=== PATIENT | female | born 1960 | race Caucasian/White ===

== ENCOUNTER 2018-01-25 09:01 | Inpatient (IN) | payer OTHER ==
--- NOTE | 2018-01-25 09:31 | RAD ---
FRONTAL VIEW CHEST: Comparison: None. Clinical history: Midsternal chest pain. Pain radiates to the left arm. FINDINGS: There is elevation of the right hemidiaphragm with blunting of the right lateral costophrenic sulcus. No lobar consolidation. Cardiac silhouette is within normal limits in size. There is vascular calcif ication. Osseous degenerative change is seen. IMPRESSION: Elevation of right hemidiaphragm with blunting of the right lateral costophrenic sulcus. There is adj acent suture material indicating prior surgery of the inferior right hemithorax. Correlate with surgi brent history. POS: [facility]
[2018-01-25 09:42] LABS: #Basophils 0.2 thou/uL (0.0-0.2); #Eosinphils 0.3 thou/uL (0.0-0.7); #Lymphocytes 3.3 thou/uL (1.20-3.40); #Monocytes 0.5 thou/uL (0.11-0.59); #Neutrophils 5.5 thou/uL (1.40-6.50); %Basophils 1.8 % (0.0-1.0); %Eosinophils 3.2 % (0.0-10.0); %Lymphocytes 33.4 % (21.0-51.0); %Monocytes 5.5 % (0.0-10.0); %Neutrophils 56.1 % (42.0-75.0); Hemoglobin 15.3 g/dL (12.0-16.0); Mean Corpuscular HGB CONC 34.2 g/dL (32.0-36.0); Mean Corpuscular Hemoglobin 30.4 pg (27.0-31.0); Mean Corpuscular Volume 88.9 fl (81.0-99.0); Mean Platelet Volume 7.6 fL (7.4-10.4); Platelet Count 328 thou/uL (130-400); RBC Distribution Width 11.7 % (11.5-14.5); Red Blood Cell (RBC) Count 5.03 mill/uL (4.20-5.40); White Blood Cell (WBC) Count 9.8 thou/uL (4.8-10.8)
[2018-01-25 10:07] LABS: ALT (SGPT) 11 U/L (8-55); AST (SGOT) 25 U/L (5-34); Albumin 4.3 g/dL (3.5-5.0); Alkaline Phosphatase 113 U/L (40-150); Anion Gap 9 mmol/L (10-20); BUN (Urea Nitrogen) 10 mg/dL (9.8-20.1); Bilirubin, Total 0.2 mg/dL (0.2-1.2); CK (CPK) 176 U/L (29-168); Calc. Creatinine Clearance 0 mL/min (70-130); Calcium 9.6 mg/dL (7.8-10.44); Carbon Dioxide 29 mmol/L (22-29); Chloride 106 mmol/L (98-107); Estimated GFR-MDRD 73; Globulin 2.8 g/dL (2.4-3.5); Glucose 99 mg/dL (70-105); Protein, Total 7.1 g/dL (6.0-8.3); Sodium 140 mmol/L (136-145)
[2018-01-25 10:17] LABS: CKMB 15.6 ng/mL (0-6.6); Troponin I 1.661 ng/mL (< 0.028)
[2018-01-25] MEDS ORDERED: Enoxaparin Sodium 80 MG/0.8 ML SYRINGE ONE (10:22)
[2018-01-25] MEDS ORDERED: Nitroglycerin 2% Ointment 1 INCH/1 GM Packet ONE (11:05)
[2018-01-25] MEDS ORDERED: Sodium Chloride 0.65% Nasal 44 ML BOT EA NARE PRN (12:04)
[2018-01-25] MEDS ORDERED: Zolpidem Tartrate 5 MG TAB PO PRN (12:04)
[2018-01-25] MEDS ORDERED: Eucerin (Mineral Oil/Petrolatum,White) 30 gm Jar TOP PRN (12:04)
[2018-01-25] MEDS ORDERED: Ondansetron HCl/PF 4 MG/2 ML Vial IVP PRN (12:04)
[2018-01-25] MEDS ORDERED: hydrALAZINE 20 MG/ML VIAL SLOW IVP PRN (12:04)
[2018-01-25] MEDS ORDERED: Diabetic Tussin 200 MG/10 ML UDCUP PO PRN (12:04)
[2018-01-25] MEDS ORDERED: Loperamide HCl 2 MG CAP PO PRN (12:04)
[2018-01-25] MEDS ORDERED: Acetaminophen 325 MG TAB PO PRN (12:04)
[2018-01-25] MEDS ORDERED: Ondansetron ODT 4 MG TAB PO PRN (12:04)
[2018-01-25] MEDS ORDERED: Nitroglycerin 0.4 MG TAB (25 Tab Bottle) PO PRN (12:04)
[2018-01-25] MEDS ORDERED: Artificial Tears 18 DROP/0.9 ML EA EYE PRN (12:04)
[2018-01-25] MEDS ORDERED: Loratadine 10 MG TAB PO PRN (12:04)
[2018-01-25] MEDS ORDERED: Mag-Al 1200 mg/1200 mg/30 ML UDCUP PO PRN (12:04)
[2018-01-25] MEDS ORDERED: Chloraseptic Spray 180 ml Bottle PO PRN (12:04)
[2018-01-25] MEDS ORDERED: Milk Of Magnesia 30 ML UDCUP PO PRN (12:04)
[2018-01-25] MEDS ORDERED: HYDROcodone/Acetaminophen 5/325 mg Tablet PO PRN (12:04)
[2018-01-25 12:52] LABS: Troponin I 2.353 ng/mL (< 0.028)
--- NOTE | 2018-01-25 14:09 | HP ---
PRIMARY CARE PHYSICIAN: [facility] call admission. REASON FOR ADMISSION: Non-ST elevation myocardial infarction. HISTORY OF PRESENT ILLNESS: A 58-year-old female who has underlying history of dyslipidemia, but not on any medication, as well as tobacco abuse disorder, who presented to the emergency room with compl aint of chest pain. Patient reports that she is having intermittent chest discomfort since 01/13/2018. She describes soheila st discomfort, retrosternal tightness, squeezing in nature, increased by exertion, associated with na usea and sometimes vomiting associated with shortness of breath. After walking, pain gets worse. So metimes last pain for 15 minutes, sometimes a little bit longer. Since 01/13/2018, patient has gradu ally increasing number of pain and gradually increasing duration of pain. Last Monday, she was havi ng severe pain associated with one episode of vomiting and pain radiated to the left upper extremity. Initially, she was thinking gas, but antiacid medication was not relieving any pain. For the last 2 days, she was not able to eat and despite that, she was having intermittent pain which was coming a fter exertion. Patient was noticing that pain whenever she was walking with her dog. This morning, patient felt a little bit better and that is why she went outside with her dog and afte r that pain was started very severe and that is why she was thinking that something wrong and that is why she decided to come to the emergency room for evaluation. Patient reports that she had lipid panel checked by her primary care physician and her bad cholestero l was significantly abnormal and that is why patient started modifying her diet as well as she starte d reducing smoking. Today in the emergency room, patient had electrocardiogram which was unremarkabl e, but troponin was significantly abnormal. Patient never had any cardiac catheterization. Patient reports that she had stress test done in the past for abnormal EKG. In the emergency room, patient was treated with Lovenox 1 mg/kg and aspirin. After that, patient's p ain subsequently subsided and after nitropatch, patient was chest pain free. Her troponin has kept i ncreasing and we are admitting this patient to telemetry floor. She denies any orthopnea, PND or leg swelling. She denies any palpitations, syncope. Patient denies any fever or chills. She denies an y relation of chest pain with full respiration. She denies any constipation, diarrhea, melena, hemat ochezia. She denies any focal motor or sensory symptoms. The patient reports that she does not like to take medication. REVIEW OF SYSTEMS: The following complete review of systems was negative, unless otherwise mentioned in the HPI or below: Constitutional: Weight loss or gain, ability to conduct usual activities. Sk in: Rash, itching. Eyes: Double vision, pain. ENT/Mouth: Nose bleeding, neck stiffness, pain, te nderness. Cardiovascular: Palpitations, dyspnea on exertion, orthopnea. Respiratory: Shortness of breath, wheezing, cough, hemoptysis, fever or night sweats. Gastrointestinal: Poor appetite, abdom inal pain, heartburn, nausea, vomiting, constipation, or diarrhea. Genitourinary: Urgency, frequenc y, dysuria, nocturia. Musculoskeletal: Pain, swelling. Neurologic/Psychiatric: Anxiety, depressio n. Allergy/Immunologic: Skin rash, bleeding tendency. Please see my HPI for pertinent positive and negative. All other review of systems reviewed and nega tive except as mentioned in the HPI. ALLERGIES: No known drug allergy. CURRENT HOME MEDICATIONS: Patient is currently not taking any prescribed or non-prescribed medicatio n. PAST MEDICAL HISTORY: Dyslipidemia but patient is only controlling with diet. PAST PSYCHIATRIC HISTORY: Anxiety disorder. PAST SURGICAL HISTORY: The patient reports that she had a deviated nasal septum surgery x2, back vishnu imelda x1, D&C x2, lung biopsy. SOCIAL HISTORY: The patient currently lives in [place], but because of her 's job, she is co neo during the summertime in [place] [facility] [place] area. She currently lives in a . She smokes a bout half pack per day. She used to be heavy smoker, but she has reduced to smoking since diagnosis of dyslipidemia. She denies any alcohol abuse. She denies any other illicit drug abuse. FAMILY HISTORY: Hypertension runs to her mother. No strong family history of premature coronary art nate disease, stroke or cancer. EMERGENCY ROOM COURSE: The patient is given nitro patch, aspirin, and Lovenox 1 mg per kg. PHYSICAL EXAMINATION: VITAL SIGNS: On arrival, blood pressure 134/81, pulse 87, respiratory rate 19, temperature 98.7, sat uration 98% on room air, weight 68.9 kilograms. GENERAL: Patient is currently alert, awake, no obvious acute distress. HEAD: Normocephalic, atraumatic. EYES: Pupils round, reactive to light. Extraocular muscle intact. ENT: Oropharynx within normal limits. Moist mucous membrane, no oral lesion, no pharyngeal erythema , no exudate. NECK: Supple, no JVD, no thyromegaly, no carotid bruit, no jugular venous distention. LUNGS: Clear to auscultation without any rhonchi or rales. CARDIAC: S1 and S2 regular. No murmur, no gallop, no rub. ABDOMEN: Soft, bowel sounds present, nontender, and nondistended. No organomegaly, no mass, no supr apubic tenderness. No epigastric tenderness, no Vidal sign. BACK: Unremarkable, no CVA tenderness. No point tenderness. EXTREMITIES: Upper extremity passive movements of all joints are normal. Lower extremities: No rosalio ma. Good peripheral pulsation, no calf tenderness. SKIN: No skin rash. HEMATOLOGICAL SYSTEM: No lymphadenopathy. PSYCHIATRIC: Anxious affect. NEUROLOGIC: The patient is alert and oriented x3. Cranial nerves II-XII intact. Motor and sensatio n within normal limits. No focal neurological deficit noted. IMAGING DATA AND SIGNIFICANT LABORATORY DATA: 1. EKG showing normal sinus rhythm without any acute ischemic changes. 2. Chest x-ray based on my review, elevation of right hemidiaphragm. 3. CBC: WBC 9.8, hemoglobin 15.3, platelet 328. 4. BMP: Sodium 140, potassium 4.0, chloride 106, carbon dioxide 29, anion gap 9, BUN 10, creatinine 0.81, glucose 99, calcium 9.6. 5. LFT: AST 25, ALT 11, alkaline phosphatase 113, albumin 4.3. D-dimer less than 0.27, CK 176, CK- MB 15.6, troponin 1.661. ASSESSMENT AND PLAN/IMPRESSION: 1. Non-ST elevation myocardial infarction. This patient has classic history of angina which gets wo rse with exertion and this is going on since 01/13/2018. The patient had worse episode of chest pain on Monday as well as this morning. Currently, patient has significantly abnormal troponin. She mena s underlying risk factors for coronary artery disease including her age, tobacco abuse, as well as dy slipidemia. The patient's clinical presentation is not consistent with any thromboembolic disorder. This is most likely related with her coronary artery disease. Patient is given instruction that she will be treated with aspirin 325 mg p.o. daily. We will also consider adding Plavix 75 mg p.o. anselmo y, Lovenox 1 mg per kg subcu twice daily and metoprolol 25 mg twice daily as well as we will also add statin therapy with Lipitor 40 mg p.o. at bedtime and we will also continue nitropatch q.8 hourly. When I provided detailed management plan to this patient, then patient reported that she is overwhelm ed with information and she does not like to take medication. I provided patient counseling to be co mpliant with medication and controlling risk factors aggressively to prevent any bad future outcome. Cardiology will be consulted. Dr. Nelson will be notified. We will obtain echocardiography to asse ss ejection fraction and other structural abnormality. Smoking cessation counseling given. Healthy lifestyle measures discussed with the patient. We will keep her n.p.o. after midnight. Patient sanam land had a lunch today, so procedure is not possible today. We will check lipid profile for risk stra tification tomorrow and we will do serial cardiac enzymes and we will closely monitor on telemetry fl oor. 2. Tobacco abuse disorder. Smoking cessation counseling given. We will offer nicotine patch if nee ded. 3. Anxiety and depression. We will provide Ativan 1 mg p.o. q.4 hourly p.r.n. for anxiety. 4. Deep venous thrombosis prophylaxis. We will continue Lovenox 1 mg per kg subcu twice daily as a full treatment for non-STEMI. 5. Gastrointestinal prophylaxis, Pepcid 20 mg p.o. b.i.d. 6. Code status: The patient is FULL CODE. Patient's is surrogate decision maker. 7. Dyslipidemia. We will check lipid profile tomorrow morning and we will start Lipitor 40 mg p.o. at bedtime. 8. Mild hypertension. Patient also has elevated blood pressure. The patient will benefit from meto prolol 25 mg twice daily. Disposition plan based on clinical course and Cardiology recommendation. Plan of care extensively di scussed with the patient in detail, but after discussion of all of this information, the patient felt herself overwhelmed with information.
--- NOTE | 2018-01-25 14:49 | CON ---
DATE OF CONSULTATION: 01/25/2018 REASON FOR CONSULTATION: Non-STEMI. HISTORY OF PRESENT ILLNESS: Mrs. Rogel is a pleasant 58-year-old white female, who comes to the [facility] for chest pain. She has noticed chest pain intermittently since 01/13/2018, so for the last 12 days she has noticed that it has been getting worse to the point where this morning she felt the peyton n was really severe and decided to come in for evaluation. She has been noticing that some days she w ould wake up without pain and she would go out and walk the dog and she started getting chest pain, s hort of breath and she would have to stop. She currently is chest pain free. She states that since the nitro was applied, she has not had any more chest pain. She otherwise has no other complaints. She states she had a clean bill of health by her primary care physician just about 6 months ago. 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 PAST MEDICAL HISTORY: Hyperlipidemia. OUTPATIENT MEDICATIONS: None. ALLERGIES: No known drug allergies. SOCIAL HISTORY: Continues to smoke. She states that she smokes anywhere from half pack to a pack an d a half a day. No alcohol or drug use. Lives in her with her . FAMILY HISTORY: Hypertension, otherwise noncontributory. PAST SURGICAL HISTORY: 1. Deviated nasal septum repair. 2. Back surgery. 3. Dilation and curettage x2. 4. Lung biopsy. REVIEW OF SYSTEMS: A 12-point review of systems was done and is all negative unless stated in the hi story of present illness. PHYSICAL EXAMINATION: VITAL SIGNS: Blood pressure 134/81, pulse 87, respiratory rate 19, satting 98% on room air, temperat ure 98.7. GENERAL: Awake, alert, oriented x3, in no distress. HEENT: Normocephalic, atraumatic. NECK: Supple. LUNGS: Clear. CARDIOVASCULAR: S1, S2. No S3, S4, no murmurs. ABDOMEN: Soft, positive bowel sounds. EXTREMITIES: No edema. SKIN: Warm and dry. LABORATORY WORK: Reviewed. Her white count of 9.8, hemoglobin of 15, hematocrit 44, platelet count 328. Coags: D-dimer is undetectable. Chemistries unremarkable except for a CK-MB of 15 and troponi n 1.6 up to 2.3. BNP was 93, albumin 4.3. EKG was reviewed. She has anterior septal Q-waves with [address] elevation on the anterior leads. No reciprocal changes. Chest x-ray: Elevated right hemidiaphragm, otherwise no acute cardiopulmonary issues. ASSESSMENT AND PLAN: 1. Non-ST elevation myocardial infarction. 2. Tobacco abuse. 3. Hyperlipidemia. PLAN: 1. I spoke with her at length about further risk stratification with a left heart catheterization. Risks and benefits were discussed. The risks included, but not limited to stroke, PR, , bleedin g and need for blood transfusion, limb loss, organ loss, vascular injury, requiring emergent vessel r epair, requiring emergent bypass surgery. The patient verbalized understanding of this and agrees to proceed. We also spoke about stenting and sedation, she agrees to proceed. I would favor bare meta l stents in her case that she does not like taking medications. 2. She just had lunch at this time and she is pain free and her troponin is just mildly elevated. M y suspicion is high for having multivessel disease and she may require bypass surgery. At this time, I will plan on doing this tomorrow morning to be safer. We will have further recommendations per re gabriella of coronary angiogram.
[2018-01-25 15:59] LABS: Troponin I 2.657 ng/mL (< 0.028)
[2018-01-25] MEDS: Nitroglycerin 2% Ointment 1 INCH/1 GM Packet TOP SCH ×2 (17:00→21:28)
[2018-01-25] MEDS ORDERED: Morphine 4 MG/ML VIAL SLOW IVP SCH (18:15)
[2018-01-25 18:40] LABS: Critical Call Chem Troponin I RESULT DECREASING; Troponin I 2.523 ng/mL (< 0.028)
[2018-01-25] MEDS ORDERED: Atorvastatin Calcium 40 MG TAB PO SCH (21:00)
[2018-01-25] MEDS: Metoprolol Tartrate 25 MG TAB PO SCH (21:28)
[2018-01-25] MEDS: Famotidine 20 MG TAB PO SCH (21:28)
[2018-01-25] MEDS: Enoxaparin Sodium 80 MG/0.8 ML SYRINGE SC SCH (21:28)
[2018-01-26 03:52] LABS: #Basophils 0.1 thou/uL (0.0-0.2); #Eosinphils 0.4 thou/uL (0.0-0.7); #Lymphocytes 4.5 thou/uL (1.20-3.40); #Monocytes 0.7 thou/uL (0.11-0.59); #Neutrophils 4.5 thou/uL (1.40-6.50); %Basophils 0.9 % (0.0-1.0); %Lymphocytes 44.2 % (21.0-51.0); %Monocytes 6.5 % (0.0-10.0); %Neutrophils 44.5 % (42.0-75.0); Hemoglobin 14.2 g/dL (12.0-16.0); Mean Corpuscular HGB CONC 34.2 g/dL (32.0-36.0); Mean Corpuscular Hemoglobin 29.9 pg (27.0-31.0); Mean Corpuscular Volume 87.5 fl (81.0-99.0); Mean Platelet Volume 7.3 fL (7.4-10.4); Platelet Count 284 thou/uL (130-400); RBC Distribution Width 11.6 % (11.5-14.5); Red Blood Cell (RBC) Count 4.74 mill/uL (4.20-5.40); White Blood Cell (WBC) Count 10.1 thou/uL (4.8-10.8)
[2018-01-26 04:14] LABS: Anion Gap 10 mmol/L (10-20); BUN (Urea Nitrogen) 11 mg/dL (9.8-20.1); Calc. Creatinine Clearance 88 mL/min (70-130); Calcium 9.5 mg/dL (7.8-10.44); Carbon Dioxide 24 mmol/L (22-29); Cardiac Risk 6.6 (Less than 4.5); Chloride 108 mmol/L (98-107); Cholesterol 171 mg/dl (< 200 Desired); Estimated GFR-MDRD 80; Glucose 96 mg/dL (70-105); HDL Cholesterol 26 mg/dL (>60 Neg Risk); Potassium 4.2 mmol/L (3.5-5.1); Sodium 138 mmol/L (136-145); Triglycerides 420 mg/dL (Less than 150)
[2018-01-26] MEDS: Nitroglycerin 2% Ointment 1 INCH/1 GM Packet TOP SCH ×3 (05:41→20:59)
[2018-01-26] MEDS ORDERED: Lidocaine 1% (PF) 30 ML VIAL ONE (06:26)
[2018-01-26] MEDS: Metoprolol Tartrate 25 MG TAB PO SCH (06:55)
[2018-01-26] MEDS: Famotidine 20 MG TAB PO SCH ×2 (06:55→20:58)
[2018-01-26] MEDS: Enoxaparin Sodium 80 MG/0.8 ML SYRINGE SC SCH (06:56)
--- NOTE | 2018-01-26 07:34 | PDOC.PN ---
- Subjective Encounter Start Date: 01/26/18 Encounter Start Time: 14:00 Subjective: Patient a bit anxious and SOB after cath and stent. Better with neb. -: Her art line came unhooked and bled on bed some which worsened her -: anxiety. Mild chest discomfort at this time. - Objective Resuscitation Status: Resuscitation Status FULL:Full Resuscitation MAR Reviewed: Yes Vital Signs & Weight: Vital Signs (12 hours) Temp Pulse Resp BP Pulse Ox 01/26/18 04:00 97.9 F 65 18 122/70 95 01/25/18 23:58 98.2 F 65 16 129/74 94 L 01/25/18 20:00 97.8 F 72 20 94 L 01/25/18 19:59 97.8 F 72 20 112/65 94 L Weight Weight 146 lb 2 oz I&O: 01/25/18 01/26/18 01/27/18 06:59 06:59 06:59 Intake Total 320 Balance 320 Result Diagrams: 01/26/18 14:53 01/26/18 03:32 Phys Exam - Physical Examination Constitutional: NAD HEENT: moist MMs Respiratory: no wheezing, no rales, no rhonchi Cardiovascular: RRR, no significant murmur Gastrointestinal: soft, positive bowel sounds Neurological: non-focal, moves all 4 limbs Psychiatric: normal affect, A&O x 3 Dx/Plan (1) NSTEMI (non-ST elevated myocardial infarction) Code(s): I21.4 - NON-ST ELEVATION (NSTEMI) MYOCARDIAL INFARCTION Status: Acute Comment: currently on Plavix, ASA, full dose Lovenox, and Nitropaste to chest wall. Had cath with almost complete LAD blockage, resolved with stent placement. Troponin repeat up a bit, will trend due to pain after cath. EKG unchanged. (2) Hyperlipidemia Code(s): E78.5 - HYPERLIPIDEMIA, UNSPECIFIED Status: Chronic Qualifiers: Hyperlipidemia type: unspecified Qualified Code(s): E78.5 - Hyperlipidemia , unspecified (3) Tobacco abuse disorder Code(s): Z72.0 - TOBACCO USE Status: Chronic (4) Anxiety Code(s): F41.9 - ANXIETY DISORDER, UNSPECIFIED Status: Chronic Comment: Ativan prn (5) COPD (chronic obstructive pulmonary disease) Status: Acute Comment: Patient uses inhaler at home. Will give albuterol neb prn. - Plan cont current plan of care, DVT proph w/lovenox, DVT proph w/SCDs * . - Discharge Day Encounter end time: 14:20
[2018-01-26] MEDS ORDERED: Fentanyl 100 MCG/2 ML VIAL ONE (07:35)
[2018-01-26] MEDS ORDERED: Midazolam HCl 2 mg/2 ml Vial ONE (07:35)
[2018-01-26] MEDS ORDERED: Heparin 10,000 UNITS/1 ML VIAL ONE (08:06)
[2018-01-26] MEDS ORDERED: Nitroglycerin 100MG/250ML BOT 250 ML ONE (08:10)
[2018-01-26] MEDS ORDERED: TICAGRELOR 90 MG TABLET ONE (08:10)
[2018-01-26] MEDS ORDERED: Aggrastat 12.5 MG/250 ML 250 ML ONE (08:21)
[2018-01-26] MEDS ORDERED: Morphine 4 MG/ML VIAL SLOW IVP PRN (08:35)
[2018-01-26] MEDS ORDERED: Aggrastat 12.5 MG/250 ML 250 ML IVPB SCH (08:45)
[2018-01-26] MEDS ORDERED: Aspirin 325 MG TAB PO SCH (09:00)
[2018-01-26] MEDS ORDERED: Clopidogrel Bisulfate 75 MG TAB PO SCH (09:00)
[2018-01-26] MEDS ORDERED: Morphine 4 MG/ML VIAL ONE (09:47)
[2018-01-26] MEDS ORDERED: Ondansetron HCl/PF 4 MG/2 ML Vial ONE (10:04)
[2018-01-26] MEDS: TICAGRELOR 90 MG TABLET PO SCH ×2 (10:57→21:11)
[2018-01-26] MEDS: Carvedilol 3.125 MG TAB PO SCH ×2 (11:03→20:58)
[2018-01-26] MEDS ORDERED: Iopamidol 370 76% 100 ML VIAL ONE (11:45)
[2018-01-26] MEDS ORDERED: Iopamidol 370 76% 50 ML VIAL FS ONE (11:45)
[2018-01-26] MEDS ORDERED: Lorazepam 2 MG/ML VIAL SLOW IVP PRN (14:01)
[2018-01-26] MEDS: Albuterol Sulfate 2.5 mg/3 ml Neb NEB PRN (14:49)
[2018-01-26] MEDS: Lorazepam 1 MG TAB PO PRN (14:50)
--- NOTE | 2018-01-26 14:50 | RAD ---
ONE VIEW CHEST: COMPARISON: 01/25/18. HISTORY: Status post surgery. FINDINGS: Normal cardiac silhouette. Atherosclerosis of the aorta. Pulmonary vessels and hilum are normal. P ersistent blunting of the right costophrenic angle. No consolidation or mass. No pneumothorax or os seous abnormalities. IMPRESSION: No acute cardiopulmonary process. POS: [facility]
[2018-01-26 15:10] LABS: #Eosinphils 0.2 thou/uL (0.0-0.7); #Lymphocytes 3.3 thou/uL (1.20-3.40); #Monocytes 0.6 thou/uL (0.11-0.59); #Neutrophils 5.2 thou/uL (1.40-6.50); %Basophils 0.5 % (0.0-1.0); %Eosinophils 2.5 % (0.0-10.0); %Lymphocytes 35.4 % (21.0-51.0); %Monocytes 6.7 % (0.0-10.0); Hemoglobin 13.3 g/dL (12.0-16.0); Mean Corpuscular HGB CONC 34.7 g/dL (32.0-36.0); Mean Corpuscular Volume 86.5 fl (81.0-99.0); Mean Platelet Volume 7.3 fL (7.4-10.4); Platelet Count 308 thou/uL (130-400); RBC Distribution Width 11.5 % (11.5-14.5); Red Blood Cell (RBC) Count 4.45 mill/uL (4.20-5.40); White Blood Cell (WBC) Count 9.4 thou/uL (4.8-10.8)
[2018-01-26 15:31] LABS: CKMB 9.4 ng/mL (0-6.6); Troponin I 3.663 ng/mL (< 0.028)
[2018-01-26 18:30] LABS: CKMB 7.2 ng/mL (0-6.6); Critical Call CKMBM RESULT DECREASING; Critical Call Chem Troponin I RESULT DECREASING; Troponin I 3.241 ng/mL (< 0.028)
--- NOTE | 2018-01-26 19:25 | CON ---
DATE OF CONSULTATION: 01/26/2018 SERVICE: Pulmonary medicine. REASON FOR CONSULTATION: ICU patient. HISTORY OF PRESENT ILLNESS: The patient is a 58-year-old white female with past medical history significant for onset of chest discomfort on 01/13/2018. It was intermittent initially. It became extremely severe, but would always remit. As such, she just attributed to other things. In the back of her mind, she always suspected it could be something more serious. That being said, there has been a lot of stress in her life recently and she did not have time to seek help. That being said, 3 days ago, she had onset of continuous chest discomfort. She finally decided to come to the emergency department. In that location, her troponin was abnormal. She did not have an ST-elevation NE however. She underwent cardiac catheterization, which demonstrated a LAD lesion. She underwent stenting. The chest discomfort at this point has resolved. She has no fevers, chills, nausea, vomiting, or shortness of breath. She never had any diaphoresis, cough, or congestion. She denies having any dysuria. PAST MEDICAL HISTORY: 1. Hypercholesterolemia. 2. Coronary artery disease, new diagnosis. 3. Pulmonary Langerhans cell histiocytosis PAST SURGICAL HISTORY: 1. Percutaneous coronary intervention. 2. Septoplasty for deviated septum. 3. Back surgery x1. 4. Dilation and curettage x2. 5. Open lung biopsy. SOCIAL HISTORY: She currently smokes a pack and a half on a daily basis. She has a greater than [id number] history of smoking. She denies any alcohol or illicit drug use. She has no exposure to chemicals, dust, asbestos, or tuberculosis. FAMILY HISTORY: Noncontributory. ALLERGIES: No known drug allergies. MEDICATIONS: List of her inpatient medications were reviewed. No specific updates were made at this time. REVIEW OF SYSTEMS: General, head, ears, eyes, nose, throat, cardiovascular, respiratory, GI, , musculoskeletal, neurologic, and skin is negative except as mentioned in the HPI. PHYSICAL EXAMINATION: VITAL SIGNS: Afebrile, pulse 66, blood pressure 143/70, respirations 18, saturation 100% on room air. GENERAL: The patient is awake, alert, in no apparent distress. HEENT: Normocephalic, atraumatic. Sclerae white. Conjunctivae pink. Oral mucosa is moist without lesions. HEART: Normal rate, regular. ABDOMEN: Soft, nontender, nondistended. Bowel sounds are positive. MUSCULOSKELETAL: No cyanosis or clubbing. No pitting in the bilateral lower extremities. NEUROLOGIC: Grossly nonfocal. LABORATORY DATA: CBC is completely unremarkable. D-dimer is below the assay limit. Troponin 2.35, is currently trending upward at 3.66. CK-MB is 9.4. BNP is 93. Liver function studies are otherwise unremarkable. Basic metabolic profile is normal. Creatinine is 0.75. IMAGING: Chest x-ray demonstrates no acute cardiopulmonary abnormality. There is right-sided blunting of the costophrenic angle, possibly consistent with a small pleural effusion. Minimal fluid in the fissure. ASSESSMENT: 1. Uel-IT-hmpcixhxv myocardial infarction. 2. Coronary artery disease, status post percutaneous coronary intervention to the left anterior descending with a drug-eluting stent. 3. Pulmonary Langerhans cell histiocytosis. PLAN: The patient will remain in the ICU for the time being. We are going to watch her very closely on property assessment monitor. If she does well, she will be considered for transition to the floor in the morning. PRN DuoNeb will be provided. Pulmonary will continue to follow while she remains in this location. 70 minutes have been devoted to this patient in various activities. I personally reviewed all imaging studies and laboratory data noted within this document. For fifty percent of this time, I was interacting with the patient at the bedside or coordinating care with the care team. For the remainder of the time I was immediately available to the patient in the hospital unit. KAYLEY
[2018-01-26] MEDS: Atorvastatin Calcium 40 MG TAB PO SCH (20:58)
[2018-01-26 21:28] LABS: CKMB 5.8 ng/mL (0-6.6)
[2018-01-26 21:30] LABS: Critical Call Chem Troponin I RESULT DECREASING; Troponin I 2.964 ng/mL (< 0.028)
--- NOTE | 2018-01-26 22:14 | EKG ---
Test Reason : Blood Pressure : / mmHG Vent. Rate : 073 BPM Atrial Rate : 073 BPM P-R Int : 176 ms QRS Dur : 070 ms QT Int : 382 ms P-R-T Axes : 064 042 025 degrees QTc Int : 420 ms Normal sinus rhythm T wave abnormality, consider anterior ischemia Abnormal ECG No previous ECGs available Confirmed by FAITH WARNER, DR. Puckett (4) on 01/26/2018 10:14:13 PM Referred By: VEE Confirmed By:DR. Italo CUEVAS MD
--- NOTE | 2018-01-26 22:16 | EKG ---
Test Reason : POST STENT - LAD Blood Pressure : / mmHG Vent. Rate : 054 BPM Atrial Rate : 054 BPM P-R Int : 186 ms QRS Dur : 074 ms QT Int : 426 ms P-R-T Axes : 070 061 065 degrees QTc Int : 403 ms Sinus bradycardia with sinus arrhythmia T wave abnormality, consider anterior ischemia Abnormal ECG When compared with ECG of 25-JAN-2018 17:50, (Unconfirmed) No significant change was found Confirmed by FAITH WARNER, SAmanda (4) on 01/26/2018 10:15:45 PM Referred By: VEE Confirmed By:DR. Italo CUEVAS MD
--- NOTE | 2018-01-26 22:18 | EKG ---
Test Reason : C/O S O B Blood Pressure : / mmHG Vent. Rate : 059 BPM Atrial Rate : 059 BPM P-R Int : 196 ms QRS Dur : 074 ms QT Int : 412 ms P-R-T Axes : 071 063 057 degrees QTc Int : 407 ms Sinus bradycardia T wave abnormality, consider anterior ischemia Abnormal ECG When compared with ECG of 26-JAN-2018 09:19, (Unconfirmed) No significant change was found Confirmed by FAITH WARNER, SAmanda (4) on 01/26/2018 10:18:32 PM Referred By: VEE Confirmed By:DR. Italo CUEVAS MD
[2018-01-27 04:51] LABS: #Basophils 0.1 thou/uL (0.0-0.2); #Eosinphils 0.2 thou/uL (0.0-0.7); #Lymphocytes 2.6 thou/uL (1.20-3.40); #Monocytes 0.6 thou/uL (0.11-0.59); #Neutrophils 7.1 thou/uL (1.40-6.50); %Basophils 0.5 % (0.0-1.0); %Eosinophils 2.2 % (0.0-10.0); %Lymphocytes 24.4 % (21.0-51.0); %Monocytes 5.8 % (0.0-10.0); %Neutrophils 67.1 % (42.0-75.0); Hemoglobin 13.4 g/dL (12.0-16.0); Mean Corpuscular HGB CONC 34.9 g/dL (32.0-36.0); Mean Corpuscular Hemoglobin 30.8 pg (27.0-31.0); Mean Corpuscular Volume 88.3 fl (81.0-99.0); Mean Platelet Volume 7.8 fL (7.4-10.4); Platelet Count 299 thou/uL (130-400); RBC Distribution Width 11.5 % (11.5-14.5); Red Blood Cell (RBC) Count 4.34 mill/uL (4.20-5.40); White Blood Cell (WBC) Count 10.6 thou/uL (4.8-10.8)
[2018-01-27 05:16] LABS: ALT (SGPT) 9 U/L (8-55); AST (SGOT) 18 U/L (5-34); Albumin 3.9 g/dL (3.5-5.0); Alkaline Phosphatase 100 U/L (40-150); Anion Gap 8 mmol/L (10-20); BUN (Urea Nitrogen) 9 mg/dL (9.8-20.1); Bilirubin, Total 0.7 mg/dL (0.2-1.2); Calc. Creatinine Clearance 84 mL/min (70-130); Calcium 9.4 mg/dL (7.8-10.44); Carbon Dioxide 27 mmol/L (22-29); Chloride 107 mmol/L (98-107); Estimated GFR-MDRD 76; Globulin 2.6 g/dL (2.4-3.5); Glucose 103 mg/dL (70-105); Protein, Total 6.5 g/dL (6.0-8.3); Sodium 138 mmol/L (136-145)
[2018-01-27] MEDS: Nitroglycerin 2% Ointment 1 INCH/1 GM Packet TOP SCH (06:08)
--- NOTE | 2018-01-27 08:11 | PDOC.PN ---
- Subjective Encounter Start Date: 01/27/18 Encounter Start Time: 11:00 Subjective: Patient without chest pain. SOB resolved with neg yesterday, doing -: well since. Feeling much better. - Objective Resuscitation Status: Resuscitation Status FULL:Full Resuscitation MAR Reviewed: Yes Vital Signs & Weight: Vital Signs (12 hours) Temp Pulse Ox 01/27/18 07:20 99 01/27/18 04:00 99.1 F 01/27/18 00:00 99 F Weight Admit Weight 146 lb 2 oz Weight 145 lb 1.027 oz Most Recent Monitor Data Heart Rate from ECG 88 NIBP 121/67 NIBP BP-Mean 83 Respiration from ECG 23 SpO2 100 I&O: 01/26/18 01/27/18 01/28/18 06:59 06:59 06:59 Intake Total 320 1329 Output Total 800 Balance 320 529 Result Diagrams: 01/27/18 04:02 01/27/18 04:02 Phys Exam - Physical Examination Constitutional: NAD HEENT: moist MMs Respiratory: no wheezing, no rales, no rhonchi Cardiovascular: RRR, no significant murmur Gastrointestinal: soft, positive bowel sounds Neurological: non-focal, moves all 4 limbs Psychiatric: normal affect, A&O x 3 Dx/Plan (1) NSTEMI (non-ST elevated myocardial infarction) Code(s): I21.4 - NON-ST ELEVATION (NSTEMI) MYOCARDIAL INFARCTION Status: Acute Comment: [facility]. Had cath with almost complete LAD blockage, resolved with stent placement. Troponin trending down. (2) Hyperlipidemia Code(s): E78.5 - HYPERLIPIDEMIA, UNSPECIFIED Status: Chronic Qualifiers: Hyperlipidemia type: unspecified Qualified Code(s): E78.5 - Hyperlipidemia , unspecified (3) Tobacco abuse disorder Code(s): Z72.0 - TOBACCO USE Status: Chronic (4) Anxiety Code(s): F41.9 - ANXIETY DISORDER, UNSPECIFIED Status: Chronic Comment: Ativan prn (5) COPD (chronic obstructive pulmonary disease) Status: Acute Comment: Patient uses inhaler at home. Will give albuterol neb prn. - Plan cont current plan of care, respiratory therapy, out of bed/ambulate, DVT proph w /SCDs Home when ok with cardiology. * . - Discharge Day Encounter end time: 11:15
[2018-01-27] MEDS: Carvedilol 3.125 MG TAB PO SCH ×2 (08:37→20:32)
[2018-01-27] MEDS: Famotidine 20 MG TAB PO SCH (08:37)
[2018-01-27] MEDS: Lorazepam 1 MG TAB PO PRN (08:45)
[2018-01-27] MEDS: TICAGRELOR 90 MG TABLET PO SCH ×2 (11:14→20:33)
--- NOTE | 2018-01-27 12:06 | PRG ---
DATE OF SERVICE: 01/27/2018 SERVICE: Pulmonary Medicine. INTERVAL HISTORY: The patient did fantastic overnight. She did not have any chest pain, nausea, vom iting, fevers or chills. Otherwise, there has been no interval change to her condition. She is real ly pleased with the progress that she has made. She had no additional events of chest discomfort. PHYSICAL EXAMINATION: VITAL SIGNS: Afebrile, pulse 96, blood pressure 100/80, respirations 12, saturation 99% on room air. GENERAL: The patient is awake, alert, no apparent distress. LUNGS: Excellent air entry without prolonged expiratory phase, wheezing, rhonchi, or crackles presen t. HEART: Normal rate and regular. ABDOMEN: Soft, nontender, nondistended. Bowel sounds are positive. MUSCULOSKELETAL: No cyanosis or clubbing. There is no pitting in the bilateral lower extremities. NEUROLOGIC: Grossly nonfocal. LABORATORY DATA: Troponin is down trending to 2.9. Basic metabolic profile and liver function studi es are otherwise unremarkable. CBC is normal. IMAGING DATA: Echocardiogram demonstrates 45%-50% ejection fraction. There is hypokinesis in the ap ical septal wall of the left ventricle, consistent with where her lesion was. ASSESSMENT: 1. Acute systolic heart failure. 2. Non-ST elevation myocardial infarction. 3. Coronary artery disease, status post PCI to the LAD with CHARLENE. 4. Pulmonary Langerhans cell histiocytosis. 5. Chronic obstructive pulmonary disease with mild exacerbation. DISCUSSION AND PLAN: The patient is stable for transition to the telemetry unit. Pulmonary or Criti brent Care will continue to follow along. Her blood pressures are marginal and she has been chest pain free for quite some time. As such, the nitro paste will be discontinued. 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
[2018-01-27] MEDS ORDERED: Sodium Chloride 0.9% 10 ML ONE (20:29)
[2018-01-27] MEDS: Atorvastatin Calcium 40 MG TAB PO SCH (20:33)
[2018-01-27] MEDS: Senokot 8.6 MG TAB PO PRN (20:33)
[2018-01-27] MEDS ORDERED: Lorazepam 0.5 MG TAB PO PRN (21:20)
[2018-01-27] MEDS: Albuterol Sulfate 2.5 mg/3 ml Neb NEB PRN (22:24)
[2018-01-28] MEDS ORDERED: Clopidogrel Bisulfate 75 MG TAB ONE (03:11)
[2018-01-28] MEDS: Carvedilol 3.125 MG TAB PO SCH ×2 (09:11→20:45)
[2018-01-28] MEDS: TICAGRELOR 90 MG TABLET PO SCH ×2 (09:11→20:45)
[2018-01-28] MEDS: Senokot 8.6 MG TAB PO PRN (11:23)
--- NOTE | 2018-01-28 18:32 | PDOC.PN ---
- Subjective Encounter Start Date: 01/28/18 Encounter Start Time: 18:25 Subjective: f/u NSTEM s/p CHARLENE to LAD. Currently asymptomatic and feeling well. -: No new complaints. - Objective Resuscitation Status: Resuscitation Status FULL:Full Resuscitation MAR Reviewed: Yes Vital Signs & Weight: Vital Signs (12 hours) Temp Pulse Resp BP BP BP BP 01/28/18 15:45 98.3 F 84 16 115/69 01/28/18 11:20 98.3 F 85 16 113/68 115/73 109/60 01/28/18 09:05 98.0 F 80 16 118/83 Pulse Ox 01/28/18 15:45 96 01/28/18 11:20 98 01/28/18 09:05 96 Weight Admit Weight 146 lb 2 oz Weight 141 lb 11.2 oz Most Recent Monitor Data Heart Rate from ECG 80 NIBP 100/76 NIBP BP-Mean 83 Respiration from ECG 25 SpO2 100 I&O: 01/27/18 01/28/18 01/29/18 06:59 06:59 06:59 Intake Total 1329 1690 600 Output Total 800 800 450 Balance 529 890 150 Result Diagrams: 01/27/18 04:02 01/27/18 04:02 Additional Labs: Laboratory Tests 01/25/18 01/25/18 01/25/18 09:18 12:15 15:16 Troponin I 1.661 H* 2.353 H* 2.657 H* Triglycerides Cholesterol HDL Cholesterol 01/25/18 01/26/18 01/26/18 17:58 03:32 14:50 Troponin I 2.523 H* 3.663 H* Triglycerides 420 H Cholesterol 171 HDL Cholesterol 01/26/18 01/26/18 17:56 20:48 Troponin I 3.241 H* 2.964 H* Triglycerides Cholesterol HDL Cholesterol Radiology Reviewed by me: Yes (2D echo - EF 45-50%, hypokinesis inferiorly) EKG Reviewed by me: Yes (Tele - SR in 90's) Phys Exam - Physical Examination Constitutional: NAD HEENT: PERRLA, moist MMs, sclera anicteric, oral pharynx no lesions Neck: no nodes, no JVD, supple, full ROM Respiratory: no wheezing, no rales, no rhonchi, clear to auscultation bilateral S1, S2 Cardiovascular: RRR, no significant murmur, no rub, gallop Gastrointestinal: soft, non-tender, no distention, positive bowel sounds Musculoskeletal: no edema, pulses present Neurological: non-focal, normal sensation, moves all 4 limbs Psychiatric: normal affect, A&O x 3 Skin: no rash, normal turgor, cap refill <2 seconds Dx/Plan (1) NSTEMI (non-ST elevated myocardial infarction) Code(s): I21.4 - NON-ST ELEVATION (NSTEMI) MYOCARDIAL INFARCTION Status: Acute Comment: Brilinta, ASA. Had cath with almost complete LAD blockage, resolved with stent placement. Troponin trending down. Plan for Brilinta x 1 year, ASA and Lipitor (2) COPD (chronic obstructive pulmonary disease) Status: Acute Comment: Abstain from tobacco use, Symbicort BID at home (3) Anxiety Code(s): F41.9 - ANXIETY DISORDER, UNSPECIFIED Status: Chronic Comment: Ativan prn, improved (4) Hyperlipidemia Code(s): E78.5 - HYPERLIPIDEMIA, UNSPECIFIED Status: Chronic Qualifiers: Hyperlipidemia type: unspecified Qualified Code(s): E78.5 - Hyperlipidemia , unspecified Comment: Lipitor 80mg HS (5) Tobacco abuse disorder Code(s): Z72.0 - TOBACCO USE Status: Chronic Comment: Continue tobacco cessation - Plan out of bed/ambulate, DVT proph w/SCDs Stable overall -: Continue ASA -: Continue Brilinta 90mg BID -: OOB/ambulate -: Likely home in am 01/29/18 * .
--- NOTE | 2018-01-28 18:49 | PRG ---
DATE OF SERVICE: 01/28/2018 SERVICE: Pulmonary Medicine. INTERVAL HISTORY: The patient is breathing very comfortably. She has no chest discomfort. Last nig ht, she had some breathing discomfort. She got a nebulized medication, and it took care of it almost immediately. She had no recurrence of any these symptoms since. She is having what feels like erika c attacks are coming and going. Otherwise, there has been no interval change to her condition. PHYSICAL EXAMINATION: VITAL SIGNS: Afebrile, pulse 84, blood pressure 115/69, respirations 16, saturation 96% on room air. GENERAL: The patient is awake, alert, no apparent distress. LUNGS: Excellent air entry. There is no prolonged expiratory phase, wheezing, rhonchi or crackles. HEART: Normal rate, regular. ABDOMEN: Soft, nontender, nondistended. Bowel sounds are positive. MUSCULOSKELETAL: No cyanosis or clubbing. No pitting is present in the bilateral lower extremities. NEUROLOGIC: Grossly nonfocal. ASSESSMENT: 1. Acute systolic heart failure. 2. Non-ST elevation myocardial infarction. 3. Coronary artery disease, status post percutaneous coronary intervention to the left anterior desc ending with a drug-eluting stent. 4. Pulmonary Langerhans cell histiocytosis. 5. Chronic obstructive pulmonary disease with mild exacerbation. DISCUSSION AND PLAN: At this point, the patient has essentially returned to her baseline breathing s tatus. As such, she has no further requirements for inpatient Pulmonary or Critical Care opinion. I will sign off. Please call with additional questions or concerns moving forward. We will continue p.r.n. nebulized medications if needed.
[2018-01-28] MEDS: Atorvastatin Calcium 40 MG TAB PO SCH (20:45)
[2018-01-29] MEDS: Carvedilol 3.125 MG TAB PO SCH (08:39)
[2018-01-29] MEDS: TICAGRELOR 90 MG TABLET PO SCH (08:39)
--- NOTE | 2018-01-29 09:08 | PDOC.CTH ---
Cardiology Progress Note - Subjective Awake, ambulating in room. Ready to go home. Denies chest pain, shortness of breath, N/V/D. Complains of "foggy feeling" to head. Denies dizziness. Discussed all discharge medications with rationales-all questions answered. Groin site without hematoma/oozing. No overnight events. - Objective Vital Signs Temp Pulse Resp BP Pulse Ox 01/29/18 08:36 98.3 F 80 18 114/92 H 98 01/29/18 03:29 98.4 F 79 18 105/58 L 96 01/29/18 00:00 98.1 F 79 18 121/68 97 Admit Weight 146 lb 2 oz Weight 144 lb 8 oz 01/28/18 01/29/18 01/30/18 06:59 06:59 06:59 Intake Total 1690 1010 Output Total 800 950 Balance 890 60 - Physical Examination General/Neuro: alert & oriented x3, NAD Neck: no JVD present Lungs: CTA, unlabored respirations Heart: RRR Abdomen: NT/ND, soft - Telemetry Telemetry Rhythm: SR - Labs Result Diagrams: 01/27/18 04:02 01/27/18 04:02 Troponin/CKMB CK-MB (CK-2) 5.8 ng/mL (0-6.6) 01/26/18 20:48 Troponin I 2.964 ng/mL (< 0.028) H* 01/26/18 20:48 - Assessment/Plan 1.CAD-s/p NSTEMI, CHARLENE to prox LAD. Currently chest pain free. Home on ASA, low -dose carvedilol, Brilinta. 2.Mixed hyperlipidemia-cont statin, TGS >400, reinforced dietary modification 3.Tobacco Abuse-reinforced complete cessation, patient plans on remaining tobacco free. Home today. F/U with in 2 weeks.
[2018-01-29 11:09] VITALS: BMI 24.7
[2018-01-29 11:23] VITALS: BP 143/68; TEMP 97.8
--- NOTE | 2018-01-29 15:04 | DIS ---
DATE OF ADMISSION: 01/25/2018 DATE OF DISCHARGE: 01/29/2018 DISCHARGE DIAGNOSES: 1. Non-ST elevation myocardial infarction. 2. Status post drug-eluting stent placement to proximal left anterior descending artery on 8. 3. Hyperlipidemia. 4. Chronic obstructive pulmonary disease. 5. Anxiety disorder. 6. Tobacco abuse. CONSULTATIONS: Dr. Lema with Pulmonology Service. Dr. Nelson with Cardiology Service. PERTINENT LABORATORY AND X-RAY FINDINGS: Troponin I ranged between 1.66-3.66, total cholesterol 171, triglycerides 420, HDL 26. CBC within normal limits. Portable chest x-ray dated 01/25/2018 showed no acute cardiopulmonary process. A 2D transthoracic echocardiogram dated 01/26/2018 showed ejection fraction 45% to 50%. Hypokinesis in the apical septal wall. Mild mitral and tricuspid valve regurg itation. HOSPITAL COURSE: The patient was initially admitted after presenting with chest pain with associated non-ST elevation myocardial infarction. The patient underwent left heart catheterization with succe ssful drug-eluting stent placement to the proximal left anterior descending artery on 01/25/2018. Th e patient was managed in the critical care unit by the Cardiology Service, treated medically with asp irin 81 mg and Brilinta 90 mg twice b.i.d. The patient clinically stabilized and transitioned to the telemetry unit with sinus mechanism noted without acute arrhythmia or dysrhythmia. The patient was given resources regarding smoking cessation and overall remained clinically stable. The patient tole rated regular oral intake, ambulated without assistance or difficulty and voiding appropriately. I h ave examined the patient's time of discharge and discussed pertinent labs, radiology studies and disc harge planning. The patient verbalizes understanding and agreement with discharge and ready for disc harge on 01/29/2018. DISCHARGE MEDICATIONS: 1. Enteric coated aspirin 81 mg 1 tablet p.o. daily. 2. Lipitor 80 mg p.o. at bedtime. 3. Carvedilol 3.125 mg p.o. b.i.d. 4. Brilinta 90 mg p.o. b.i.d. FOLLOWUP: Patient will follow up with her primary care provider in [place]. The patient will follo w up with Dr. Nelson with [facility] Cardiology Service 2 weeks after discharge. CONDITION ON DISCHARGE: Stable. ACTIVITY: Ad melida. DIET: Heart healthy. CODE STATUS: FULL. DISPOSITION: Home 01/29/2018. Total time preparing and coordinating discharge 32 minutes.
--- NOTE | 2018-01-29 17:09 | EKG ---
Test Reason : Blood Pressure : / mmHG Vent. Rate : 072 BPM Atrial Rate : 072 BPM P-R Int : 156 ms QRS Dur : 072 ms QT Int : 380 ms P-R-T Axes : 068 047 055 degrees QTc Int : 416 ms Normal sinus rhythm Nonspecific T wave abnormality Abnormal ECG When compared with ECG of 26-JAN-2018 13:43, No significant change was found Confirmed by FAITH WARNER, SAmanda ([id number]) on 01/29/2018 5:08:51 PM Referred By: LEONARDO BAXTER M.D. Confirmed By:DR. Italo CUEVAS MD
== END 2018-01-29 11:33 | disposition home or self-care (01) | DRG 247 ==
LOC: ERS 09:01 → ERHOLD 11:34 → 2NO 16:18 → CCU 01-26 09:00 → 2NO 01-27 14:20
PROVIDERS: ADMIT Internal Medicine; ATTEND Internal Medicine
PROC: 027034Z Dilation of Coronary Artery, One Artery with Drug-eluting Intraluminal Device, Percutaneous Approach (ICD-10-PCS; principal; 2018-01-26)
PROC: 4A023N7 Measurement of Cardiac Sampling and Pressure, Left Heart, Percutaneous Approach (ICD-10-PCS; 2018-01-26)
PROC: B2111ZZ Fluoroscopy of Multiple Coronary Arteries using Low Osmolar Contrast (ICD-10-PCS; 2018-01-26)
PROC: B2151ZZ Fluoroscopy of Left Heart using Low Osmolar Contrast (ICD-10-PCS; 2018-01-26)
DX: I21.4 Non-ST elevation (NSTEMI) myocardial infarction (principal); F17.210 Nicotine dependence, cigarettes, uncomplicated; E78.5 Hyperlipidemia, unspecified; I10 Essential (primary) hypertension; F41.9 Anxiety disorder, unspecified; J44.9 Chronic obstructive pulmonary disease, unspecified; I25.10 Atherosclerotic heart disease of native coronary artery without angina pectoris
CPT/HCPCS: 36415; 71045; 80048; 80053; 80061; 82550; 82553; 83880; 84484; 85025; 85347; 85379; 92928; 92978; 93005; 93010; 93306; 93458; 94640; 96372; 99152; 99153; A4216; C1769; C1874; C9600; J1644; J1650; J2001; J2250; J2270; J2405; J3010; J3246; J7611

== ENCOUNTER 2018-11-02 07:35 | Emergency (ER) | payer OTHER ==
[2018-11-02 08:38] LABS: #Basophils 0.1 thou/uL (0.0-0.2); #Eosinphils 0.2 thou/uL (0.0-0.7); #Lymphocytes 2.2 thou/uL (1.20-3.40); #Monocytes 1.1 thou/uL (0.11-0.59); #Neutrophils 9.2 thou/uL (1.40-6.50); %Basophils 1.1 % (0.0-1.0); %Eosinophils 1.5 % (0.0-10.0); %Lymphocytes 16.8 % (21.0-51.0); %Monocytes 8.8 % (0.0-10.0); Hemoglobin 14.1 g/dL (12.0-16.0); Mean Corpuscular HGB CONC 33.6 g/dL (32.0-36.0); Mean Corpuscular Hemoglobin 29.4 pg (27.0-31.0); Mean Corpuscular Volume 87.3 fL (78.0-98.0); Mean Platelet Volume 7.4 fL (7.4-10.4); Platelet Count 322 thou/uL (130-400); RBC Distribution Width 11.2 % (11.5-14.5); Red Blood Cell (RBC) Count 4.82 mill/uL (4.20-5.40); White Blood Cell (WBC) Count 12.8 thou/uL (4.8-10.8)
[2018-11-02 08:41] LABS: Bilirubin Moderate (Negative); Blood, Urine Small (Negative); Clarity CLEAR (Clear); Glucose, Urine (Dipstick) Negative (Negative); Leukocyte Negative (Negative); Nitrite Negative (Negative); Protein, Urine (Dipstick) 30 mg/dL (Neg-Trace)
[2018-11-02 08:43] LABS: Bacteria/HPF Rare-Few HPF (None Seen)
[2018-11-02] MEDS ORDERED: methylPREDNISolone Sod Succ/PF 125 MG/2 ML VIAL ONE (08:54)
[2018-11-02 09:00] LABS: ALT (SGPT) 13 U/L (8-55); AST (SGOT) 19 U/L (5-34); Albumin 4.2 g/dL (3.5-5.0); Alkaline Phosphatase 115 U/L (40-150); Anion Gap 15 mmol/L (10-20); BUN (Urea Nitrogen) 12 mg/dL (9.8-20.1); Bilirubin, Total 0.6 mg/dL (0.2-1.2); Calc. Creatinine Clearance 0 mL/min (70-130); Calcium 9.9 mg/dL (7.8-10.44); Carbon Dioxide 27 mmol/L (22-29); Chloride 98 mmol/L (98-107); Estimated GFR-MDRD 78; Globulin 3.3 g/dL (2.4-3.5); Glucose 108 mg/dL (70-105); Lipase 13 U/L (8-78); Potassium 3.2 mmol/L (3.5-5.1); Protein, Total 7.5 g/dL (6.0-8.3); Sodium 137 mmol/L (136-145)
[2018-11-02 09:05] LABS: Hyaline Casts/LPF 0-3 HYALINE CAST LPF (0-3 Hyaline); Manual Microscopic Reviewed? No Path Casts Seen; Pathc Cast-AUWi Flag 3.48 (0-2.49); Renal Epithelial 0-3 HPF (0-3); Transitional Epithelial 0-3 HPF (0-3)
--- NOTE | 2018-11-02 09:09 | RAD ---
PA AND LATERAL CHEST: HISTORY: Cough. COMPARISON: 01/26/2018 FINDINGS: Heart size and mediastinum are within normal limits. Chronic pleural changes are seen in the right c ostophrenic angle. The lungs are clear of any infiltrative process. IMPRESSION: No active intrathoracic disease. Stable chest. POS: [facility]
[2018-11-02] MEDS ORDERED: Potassium Chloride 20 MEQ TAB ONE (09:35)
== END 2018-11-02 10:35 | disposition home or self-care (01) ==
LOC: ERS 07:35
DX: E87.6 Hypokalemia (principal); R11.2 Nausea with vomiting, unspecified; R09.89 Other specified symptoms and signs involving the circulatory and respiratory systems; I25.2 Old myocardial infarction; E78.5 Hyperlipidemia, unspecified; F41.9 Anxiety disorder, unspecified; Z87.891 Personal history of nicotine dependence
CPT/HCPCS: 71046; 80053; 81003; 81015; 83690; 85025; 94640; 96361; 96374; J2930; J7620